=== PATIENT | female | born 1985 | race Caucasian/White ===

== ENCOUNTER 2016-07-29 10:22 | Emergency (ER) | payer OTHER ==
[~2016-07-29] VITALS: Ht 154.9 cm; Wt 60.0 kg
[~2016-07-29 10:22] MED LIST: ALPR.5 PO
[2016-07-29 10:24] VITALS: BP 119/77; PULSE 82; RESP 20; TEMP 97.5; O2SAT 100
--- NOTE | 2016-07-29 11:06 | PD ---
Physical Exam Date Seen by Provider: Jul 29, 2016 Time Seen by Provider: 11:02 Narrative Pt presents to the ED for evaluation of a skin rash on her hands. Pt states she was bitten by ants 2 weeks ago and thinks this is what started it. Pt states it is painful and feels irritated and her fingertips feel numb. VSS, pt appears well. Pt awaiting bed placement. Data Data Last Documented VS Vital Signs Date Time Temp Pulse Resp B/P Pulse Ox O2 Delivery O2 Flow Rate FiO2 07/29/16 10:24 97.5 82 20 119/77 100 Room Air MDM Supervised Visit with PLACIDO: Carol Bera Jul 29, 2016 11:06
[2016-07-29] MEDS ORDERED: LAMO25 PO (12:32)
[2016-07-29] MEDS ORDERED: BACT800T5 PO (12:41)
[2016-07-29] MEDS ORDERED: CEPH-460 PO (12:41)
--- NOTE | 2016-07-29 12:43 | PD ---
HPI Chief Complaint: Skin Problem Time Seen by Provider: 12:41 Travel History International Travel<30 days: No Contact w/Intl Traveler<30days: No Traveled to known affect area: No History of Present Illness HPI 31-year-old female with a history of IV drug use presents to the emergency department for evaluation of bilateral hand redness at injection sites. The patient states that she has a history of IV heroin abuse, last used this morning. States that she went to [facility] this morning to enroll herself in detox and she was told she had to come here to have her hands evaluated before they would accept her. Patient states that she's had redness and swelling to bilateral hands for the past 2-3 weeks. States that it has greatly improved over the past 2 weeks just with proper wound care. States that she had a fever 2 weeks ago but since has had no fever. States that she is feeling well overall and that the redness and swelling has almost resolved. Denies chest pain, shortness of breath, numbness or tingling, weakness, chills. No other complaints. Denies , last menstrual period 1 week ago. PFSH Past Medical History Anxiety: Yes ?: Not LMP: 07/28/16 Social History Alcohol Use: No Tobacco Use: Yes Substance Use: Yes Allergies-Medications (Allergen,Severity, Reaction): Coded Allergies: Penicillin (Verified Allergy, Unknown, 02/29/16) Reported Meds & Prescriptions Reported Meds & Active Scripts Active Keflex (Cephalexin) 500 Mg Cap 500 Mg PO Q8H 7 Days Bactrim DS (Sulfamethoxazole-Trimethoprim) 800-160 Mg Tab 1 Tab PO BID 10 Days Reported Lamictal (Lamotrigine) 25 Mg Tab 25 Mg PO DAILY Review of Systems Except as stated in HPI: all other systems reviewed are Neg Physical Exam Narrative GENERAL: Well-nourished and well-developed pleasant female patient in no acute distress who is nontoxic appearing. SKIN: Warm and dry. HEAD: Normocephalic and atraumatic. EYES: No injection, drainage, or hyphema noted. PERRLA. EOMI. ENT: No nasal drainage noted. Oropharynx is clear. NECK: Supple and the trachea is midline. CARDIOVASCULAR: Regular rate and rhythm. No murmur. RESPIRATORY: Breath sounds are equal bilaterally with no accessory muscle use, wheezing, rhonchi, or crackles. EXTREMITY: Bilateral dorsal aspects of hands with multiple small areas of erythema with healing injection sites. There is an area of erythema overlying the volar aspect of the right wrist that is warm to touch however patient has full range of motion in all joints and no evidence of septic joint. Full range of motion in all joints. No joint swelling/injury. Lumbrical and interossei function intact. Normal opposition of thumb. Distal extremity neurovascularly intact with intact two point discrimination. NEUROLOGICAL: Awake, alert, and oriented. Normal speech and gait. Cranial nerves are grossly intact. Data Data Last Documented VS Vital Signs Date Time Temp Pulse Resp B/P Pulse Ox O2 Delivery O2 Flow Rate FiO2 07/29/16 10:24 97.5 82 20 119/77 100 Room Air MDM Medical Decision Making Medical Screen Exam Complete: Yes Emergency Medical Condition: Yes Differential Diagnosis Cellulitis versus IV drug use versus healing wounds Narrative Course 31-year-old female presents to the emergency department for evaluation of bilateral hand redness secondary to IV drug use. Patient is afebrile, vital signs are stable. The patient is reporting that these have greatly improved over the past several weeks. They do appear to be healing but there are 2 areas on the hand and wrist that still appear to be cellulitic and therefore the patient will be placed on antibiotics. No signs or symptoms of sepsis or septic joint. Patient is stable for discharge. Diagnosis Primary Impression: Cellulitis of multiple sites of hand and fingers Additional Impression: IVDU (intravenous drug user) Referrals: Primary Care Physician Patient Instructions: Cellulitis (ED), General Instructions Additional Instructions: Take medications as prescribed with food and a full glass of water. Follow-up with your Primary Care Physician. Return to the ED for any acute worsening of symptoms. Med/Other Pt SpecificInfo: Prescription(s) given Scripts Cephalexin (Keflex)500 Mg Qly576 Mg PO Q8H 7 Days Ref 0 Prov:Ion Figueroa MD 07/29/16 Sulfamethoxazole-Trimethoprim (Bactrim DS)800-160 Mg Tab1 Tab PO BID 10 Days Ref 0 Prov:Ion Figueroa MD 07/29/16 Disposition: 01 DISCHARGE HOME Condition: Stable Angelique Persaud Jul 29, 2016 12:43
== END 2016-07-29 13:23 | disposition home or self-care (01) ==
LOC: NETRI 10:22
DX: L03.114 Cellulitis of left upper limb (principal); L03.113 Cellulitis of right upper limb; F11.10 Opioid abuse, uncomplicated; Z72.0 Tobacco use
CPT/HCPCS: 99283

== ENCOUNTER 2016-09-26 00:58 | Emergency (ER) | payer SELFPAY ==
[~2016-09-26] VITALS: Ht 165.1 cm; Wt 60.0 kg
[~2016-09-26 00:58] MED LIST changes: -ALPR.5 PO; +BACT800T5 PO; +CEPH-460 PO; +LAMO25 PO
[2016-09-26 01:00] VITALS: BP 111/75; PULSE 80; RESP 16; TEMP 98.7; O2SAT 100
[2016-09-26 02:42] VITALS: BP 110/69; PULSE 72; RESP 24; TEMP 98.1; O2SAT 100
[2016-09-26] MEDS ORDERED: TRAZ50TA12 PO (02:50)
[2016-09-26] MEDS ORDERED: antidepressant (02:50)
--- NOTE | 2016-09-26 03:11 | PD ---
HPI Chief Complaint: Syncope/Near-Syncope Time Seen by Provider: 02:44 Travel History International Travel<30 days: No Contact w/Intl Traveler<30days: No Traveled to known affect area: No History of Present Illness HPI The patient is a 31 year old female who presents to the [facility] emergency department with a history of right hand pain that began 2-3 days ago when she missed while injecting Dilaudid. She has been using IV drugs for 3 years. She has had dizziness. She denies fever. She also reports having shortness of breath intermittently since yesterday. She last used heroin a few hours ago. The patient reports over the last day having dysuria with urinary frequency, no urinary urgency. The patient denies any known recent fevers, cough, congestion, neck pain, chest pain, abdominal pain, vomiting, diarrhea, urinary symptoms, or neurologic symptoms. LMP September 20, 2016. [facility] Past Medical History Narrative Medical The patient's past medical history is significant for anxiety, insomnia, IV drug use. No h/o HIV or hepatitis C. She was last tested 1 month ago. Anxiety: Yes Diminished Hearing: No Insomnia: Yes Tetanus Vaccination: < 5 Years Influenza Vaccination: No ?: Not LMP: 09/22/16 Menopausal: No : 2 Para: 2 Past Surgical History Narrative Surgical The patient's past surgical history is significant for breast augmentation, c- section x1. Section: Yes Other Surgery: Yes (breast augmentation) Social History Alcohol Use: No Tobacco Use: Yes (vaps daily) Substance Use: Yes (Dilaudid/ heroin) Allergies-Medications (Allergen,Severity, Reaction): Coded Allergies: Penicillin (Verified Allergy, Unknown, 02/29/16) Reported Meds & Prescriptions Reported Meds & Active Scripts Active Cephalexin 500 Mg Cap 500 Mg PO Q6H 10 Days Bactrim DS (Sulfamethoxazole-Trimethoprim) 800-160 Mg Tab 1 Tab PO BID 10 Days Reported [antidepressant] Trazodone (Trazodone HCl) 50 Mg Tab 100 Mg PO HS Review of Systems Except as stated in HPI: all other systems reviewed are Neg General / Constitutional: No: Fever Eyes: No: Visual changes HENT: No: Headaches, Rhinorrhea, Congestion Cardiovascular: Positive: Dyspnea on exertion, No: Chest Pain or Discomfort Respiratory: Positive: Shortness of Breath, No: Cough Gastrointestinal: No: Nausea, Vomiting, Diarrhea, Abdominal Pain Genitourinary: No: Dysuria Musculoskeletal: Positive: Myalgias, Edema, Pain, No: Limited ROM Skin: Positive Other (redness of the right proximal hand), No Rash Neurologic: No: Weakness, Focal Abnormalities, Change in Mentation, Slurred Speech, Paresthesia Psychiatric: No: Depression Endocrine: No: Polydipsia Hematologic/Lymphatic: No: Easy Bruising Physical Exam Narrative General: The patient is a well-developed well-nourished female in no acute distress. Head and Neck exam: Head is normocephalic atraumatic. Eyes: EOMI, pupils are equal round and reactive to light. Nose: Midline septum with pink mucous membranes Mouth: Dentition unremarkable. Moist mucus membranes. Posterior oropharynx is not erythematous. No tonsillar hypertrophy. Uvula midline. Airway patent. Neck: No palpable lymphadenopathy. No nuchal rigidity. No thyromegaly. Cardiovascular: Regular rate and rhythm without murmurs, gallops, or rubs. No pulse deficit to the extremities on auscultation and palpation of her radial artery. Lungs: Clear to auscultation bilaterally. No wheezes, rhonchi, or rales. Abdomen: Soft, without tenderness to palpation in all 4 quadrants of the abdomen. No guarding, rebound, or rigidity. Normal bowel sounds are audible. No tenderness on palpation of McBurney's point. Extremities: No clubbing, cyanosis, or edema, except an area of interest, the right upper extremity. The patient is noted to have slight edema and erythema along the ulnar side of the proximal hand. There is no fluctuance. No pointing. The patient has full range of motion. 2+ pulses in all 4 extremities. Back: No spinous process tenderness to palpation. No costovertebral angle tenderness to palpation. Neurologic Exam: Cranial nerves 2-12 were intact on exam. Strength is 5/5 in all 4 extremities. No sensory deficits noted. Skin Exam: The patient has track flores noted in bilateral upper extremities. Data Data Last Documented VS Vital Signs Date Time Temp Pulse Resp B/P Pulse Ox O2 Delivery O2 Flow Rate FiO2 09/26/16 07:25 80 18 99/58 99 09/26/16 05:39 Room Air 09/26/16 02:42 98.1 Orders Electrocardiogram (09/26/16 03:11) Complete Blood Count With Diff (09/26/16 03:11) Comprehensive Metabolic Panel (09/26/16 03:11) B-Type Natriuretic Peptide (09/26/16 03:11) Blood Culture (09/26/16 03:11) Urinalysis - C+S If Indicated (09/26/16 03:11) Westergren Sedimentation Rate (09/26/16 03:11) D-Dimer (09/26/16 03:11) Chest, Single Ap (09/26/16 03:11) Iv Access Insert/Monitor (09/26/16 03:11) Ecg Monitoring (09/26/16 03:11) Oximetry (09/26/16 03:11) Ed Urine Pregnancytest Poc (09/26/16 03:11) Lactic Acid Sepsis Protocol (09/26/16 03:11) Clindamycin Inj (Cleocin Inj) (09/26/16 03:15) Sodium Chlor 0.9% 1000 Ml Inj (Ns 1000 M (09/26/16 03:15) Urine Culture (09/26/16 03:15) Sulfamet-Trimeth Ds 800-160 Mg (Bactrim (09/26/16 04:15) Ct Pulmonary Angiogram (09/26/16 04:54) Iohexol 350 Inj (Omnipaque 350 Inj) (09/26/16 05:53) Labs Laboratory Tests Test 09/26/16 09/26/16 03:15 04:00 White Blood Count 7.7 TH/MM3 Red Blood Count 4.36 MIL/MM3 Hemoglobin 10.8 GM/DL Hematocrit 34.5 % Mean Corpuscular Volume 79.2 FL Mean Corpuscular Hemoglobin 24.7 PG Mean Corpuscular Hemoglobin 31.2 % Concent Red Cell Distribution Width 19.0 % Platelet Count 272 TH/MM3 Mean Platelet Volume 7.6 FL Neutrophils (%) (Auto) 63.9 % Lymphocytes (%) (Auto) 23.7 % Monocytes (%) (Auto) 7.6 % Eosinophils (%) (Auto) 4.1 % Basophils (%) (Auto) 0.7 % Neutrophils # (Auto) 4.9 TH/MM3 Lymphocytes # (Auto) 1.8 TH/MM3 Monocytes # (Auto) 0.6 TH/MM3 Eosinophils # (Auto) 0.3 TH/MM3 Basophils # (Auto) 0.1 TH/MM3 CBC Comment DIFF FINAL Differential Comment Erythrocyte Sedimentation Rate 19 mm/hr D-Dimer Quantitative (PE/DVT) 0.57 MG/L FEU Urine Color YELLOW Urine Turbidity HAZY Urine pH 5.5 Urine Specific [place] 1.026 Urine Protein TRACE mg/dL Urine Glucose (UA) NEG mg/dL Urine Ketones TRACE mg/dL Urine Occult Blood NEG Urine Nitrite POS Urine Bilirubin NEG Urine Urobilinogen LESS THAN 2.0 MG/DL Urine Leukocyte Esterase LARGE Urine RBC 4 /hpf Urine WBC 59 /hpf Urine Squamous Epithelial <1 /hpf Cells Urine Bacteria MANY /hpf Urine Mucus FEW /lpf Microscopic Urinalysis Comment CULTURE INDICATED Sodium Level 140 MEQ/L Potassium Level 3.9 MEQ/L Chloride Level 102 MEQ/L Carbon Dioxide Level 27.4 MEQ/L Anion Gap 11 MEQ/L Blood Urea Nitrogen 16 MG/DL Creatinine 0.81 MG/DL Estimat Glomerular Filtration 83 ML/MIN Rate Random Glucose 102 MG/DL Lactic Acid Level 0.7 mmol/L Calcium Level 8.9 MG/DL Total Bilirubin 0.3 MG/DL Aspartate Amino Transf 89 U/L (AST/SGOT) Alanine Aminotransferase 173 U/L (ALT/SGPT) Alkaline Phosphatase 334 U/L Total Protein 7.9 GM/DL Albumin 3.9 GM/DL B-Type Natriuretic Peptide 6 PG/ML MDM Medical Decision Making Medical Screen Exam Complete: Yes Emergency Medical Condition: Yes Medical Record Reviewed: Yes Interpretation(s) Last Impressions CT Angiography 09/26/16 0454 Signed Impressions: Service Date/Time: Monday, September 26, 2016 05:47 - CONCLUSION: No evidence of pulmonary embolism. Mild axillary rissa prominence Festus Castrejon MD Chest X-Ray 09/26/16 0311 Signed Impressions: Service Date/Time: Monday, September 26, 2016 03:43 - CONCLUSION: No acute disease. Festus Castrejon MD Differential Diagnosis Cellulitis, versus sepsis, versus pneumonia, versus pulmonary embolism, versus septic embolization, versus endocarditis Narrative Course During the course of the patients emergency department visit, the patients history, examination, and differential diagnosis were reviewed with the patient. The patient had IV access obtained and blood work sent for analysis. The patient was placed on a awake overnight monitor with oximetry and blood pressure monitoring. An EKG was done on arrival. The patient's EKG shows a sinus bradycardia with sinus arrhythmia, heart rate 57, QRS duration 85 ms, QTC 420 ms , no acute ST segment elevation or depression, T waves inverted in V1. The patient was initially provided normal saline 1 L IV fluid bolus, clindamycin 900 mg IV. After a urinary tract infection was identified the patient was given Bactrim DS one by mouth times one. The patients laboratory studies were reviewed and remarkable for a white count of 7.7, hemoglobin 10.8, platelets 272 with 4.1 eosinophils, sedimentation rate is 19, CMP is remarkable for a GFR of 83, AST 89, ALT 173, alkaline phosphatase 334, lactic acid 0.7, BNP is 6, d-dimer is elevated at 0.57, CTA to rule out PE was ordered. Urinalysis shows trace ketones, positive nitrites, large leukocyte esterase, 4 rbc's, wbc's 59, many bacteria Radiology studies were reviewed and remarkable for a chest x-ray that shows no acute abdomen on a. CTA to rule out PE was negative for pulmonary embolism, mild axillary lymphadenopathy is noted. The patient was instructed regarding the elevated liver enzymes which could be related hepatitis given her history of IV drug use. She is instructed to follow -up with a primary care physician regarding this. She is instructed to avoid IV drug use. The patient will be discharged home with a prescription for Bactrim DS, and Keflex. The patient is resting comfortably and feels better, is alert and in no distress. The patients results and examination findings were discussed with the patient. The repeat examination is unremarkable and benign. The history, exam, diagnostic testing, and current condition do not suggest any significant pathology to warrant further testing, continued ED treatment, admission, or surgical evaluation at this point. The vital signs have been stable. The patient does not have uncontrollable pain, intractable vomiting, or other significant symptoms. The patient's condition is stable and appropriate for discharge. The patient will pursue further outpatient evaluation with a primary care physician or other designated or consulting physician as indicated in the discharge instructions. The patient expressed understanding and was agreeable with this plan. Diagnosis Primary Impression: Cellulitis of right hand Additional Impressions: Urinary tract infection Qualified Code: N30.00 - Acute cystitis without hematuria Elevated liver enzymes Referrals: Primary Care Physician Patient Instructions: Cellulitis (ED), General Instructions, Urinary Tract Infection in Women (ED) Additional Instructions: Follow-up with your primary care physician regarding elevated liver enzymes. Med/Other Pt SpecificInfo: Prescription(s) given Scripts Cephalexin 500 Mg Pde539 Mg PO Q6H 10 Days Ref 0 Prov:Beverly Jarrett MD 09/26/16 Sulfamethoxazole-Trimethoprim (Bactrim DS)800-160 Mg Tab1 Tab PO BID 10 Days Ref 0 Prov:Beverly Jarrett MD 09/26/16 Disposition: 01 DISCHARGE HOME Condition: Stable Beverly Jarrett MD September 26, 2016 03:11
[2016-09-26] MEDS ORDERED: SODIUM CHLOR 0.9% 1000 ML INJ 1,000 ML IV ONE (03:15)
[2016-09-26] MEDS ORDERED: CLINDAMYCIN INJ 900 MG in SODIUM CHLORIDE 0.9% INJ 100 ML IV ONE (03:15)
[2016-09-26 03:32] VITALS: O2SAT 100
[2016-09-26 03:45] LABS: AUTOMATED NEUTROPHIL # 4.9 TH/MM3 (1.8-7.7); BASOPHIL # 0.1 TH/MM3 (0-0.2); BASOPHIL % 0.7 % (0.0-2.0); EOSINOPHIL # 0.3 TH/MM3 (0-0.4); EOSINOPHIL % 4.1 % (0.0-4.0); HEMATOCRIT 34.5 % (35.0-46.0); HEMO FLAGS DIFF FINAL; LYMPH % 23.7 % (9.0-44.0); LYMPHOCYTE # 1.8 TH/MM3 (1.0-4.8); MEAN CELL VOLUME 79.2 FL (80.0-100.0); MEAN CORPUSCULAR HEMOGLOBIN 24.7 PG (27.0-34.0); MEAN CORPUSCULAR HGB CONC 31.2 % (32.0-36.0); MONO % 7.6 % (0.0-8.0); NEUT % 63.9 % (16.0-70.0); PLATELET COUNT 272 TH/MM3 (150-450); RED BLOOD COUNT 4.36 MIL/MM3 (4.00-5.30); WHITE BLOOD COUNT 7.7 TH/MM3 (4.0-11.0)
[2016-09-26 03:51] LABS: BACTERIA, URINE MANY /hpf; BLOOD, URINE NEG (NEG); COMMENT (UR) CULTURE INDICATED; CULTURE IF INDICATED CULTURE INDICATED; GLUCOSE,URINE NEG (NEG); KETONE, URINE TRACE mg/dL (NEG); MUCUS URINE FEW /lpf (OCC); NITRITE,URINE POS (NEG); PH, URINE 5.5 (5.0-8.5); SQUAMOUS EPITHELIAL CELL URINE <1 /hpf (0-5); URINE COLOR YELLOW (YELLW/STRAW)
[2016-09-26 04:04] LABS: ALKALINE PHOSPHATASE 334 U/L (45-117); TOTAL BILIRUBIN ADULT 0.3 MG/DL (0.2-1.0)
[2016-09-26 04:10] LABS: ALT (GPT) 173 U/L (10-53); ANION GAP 11 MEQ/L (5-15); AST (GOT) 89 U/L (15-37); BICARBONATE 27.4 MEQ/L (21.0-32.0); BLOOD UREA NITROGEN 16 MG/DL (7-18); CHLORIDE 102 MEQ/L (98-107); GLOMERULAR FILTRATION RATE 83 ML/MIN (>89); POTASSIUM 3.9 MEQ/L (3.5-5.1); SODIUM (NA) 140 MEQ/L (136-145)
[2016-09-26] MEDS ORDERED: SULFAMETHOXAZOLE-TRIMETHOPRIM DS 800-160 MG TAB PO ONE (04:15)
--- NOTE | 2016-09-26 04:56 | RADRPT ---
EXAM DATE/TIME: 09/26/2016 03:43 [facility] COMPARISON: No previous studies available for comparison. INDICATIONS : Short of breath. MEDICAL HISTORY : None. SURGICAL HISTORY : None. ENCOUNTER: Initial ACUITY: 1 day PAIN SCORE: 6/10 LOCATION: Bilateral chest FINDINGS: A single view of the chest demonstrates the lungs to be symmetrically aerated without evidence of mas s, infiltrate or effusion. The cardiomediastinal contours are unremarkable. Osseous structures are intact. CONCLUSION: No acute disease. Festus Castrejon MD on September 26, 2016 at 4:54 Board Certified Radiologist. This report was verified electronically.
[2016-09-26 05:39] VITALS: BP 115/70; PULSE 78; RESP 20; O2SAT 98
[2016-09-26] MEDS ORDERED: IOHEXOL 350 MG/ML 10 ML VIAL (for RAD DIAG) IV ONE (05:53)
--- NOTE | 2016-09-26 06:30 | RADRPT ---
EXAM DATE/TIME: 09/26/2016 05:47 [facility] COMPARISON: No previous studies available for comparison. INDICATIONS : Dyspnea; rule out pulmonary embolus. IV CONTRAST: 72 cc Omnipaque 350 (iohexol) IV RADIATION DOSE: 23.14 CTDIvol (mGy) MEDICAL HISTORY : substance abuse SURGICAL HISTORY : section. ENCOUNTER: Initial ACUITY: 1 day PAIN SCALE: 3/10 LOCATION: chest TECHNIQUE: Volumetric scanning of the chest was performed using a pulmonary embolism protocol MIP images were re constructed. Using automated exposure control and adjustment of the mA and/or kV according to patien t size, radiation dose was kept as low as reasonably achievable to obtain optimal diagnostic quality images. FINDINGS: PULMONARY ARTERIES: No filling defects are seen in the pulmonary arteries through the segmental level. LUNGS: Mild dependent posterior lung atelectasis bilaterally. PLEURAE: There is no pleural thickening or pleural effusion. MEDIASTINUM: There is good visualization of the great vessels of the middle mediastinum. No evidence of mediastin al or hilar adenopathy/mass. MUSCULOSKELETAL: Within normal limits for patient age. MISCELLANEOUS: Mild prominence of bilateral axillary lymph nodes. The visualized upper abdominal organs demonstrate no acute abnormality. CONCLUSION: No evidence of pulmonary embolism. Mild axillary rissa prominence Festus Castrejon MD on September 26, 2016 at 6:24 Board Certified Radiologist. This report was verified electronically.
[2016-09-26] MEDS ORDERED: BACT800T5 PO (06:57)
[2016-09-26] MEDS ORDERED: CEPH500C PO (06:57)
[2016-09-26 07:25] VITALS: BP 99/58
--- NOTE | 2016-09-26 08:12 | EKG ---
Date Performed: 09/26/2016 Time Performed: 04:03:50 PTAGE: 31 years EKG: SINUS BRADYCARDIA WITH SINUS ARRHYTHMIA BORDERLINE ECG NO PREVIOUS TRACING DOCTOR: Morgan Chan Interpretating Date/Time 09/26/2016 08:12:24
== END 2016-09-26 07:26 | disposition home or self-care (01) ==
LOC: NEPE 00:58
DX: L03.113 Cellulitis of right upper limb (principal); N30.00 Acute cystitis without hematuria; B96.20 Unspecified Escherichia coli [E. coli] as the cause of diseases classified elsewhere; R00.1 Bradycardia, unspecified; R74.8 Abnormal levels of other serum enzymes; R06.02 Shortness of breath; Z72.0 Tobacco use
CPT/HCPCS: 71010; 71275; 80053; 81001; 83605; 83880; 84703; 85025; 85379; 85652; 87040; 87077; 87086; 87186; 93005; 96365; 96366; 99285; J7030; Q9967

== ENCOUNTER 2016-10-04 10:50 | Emergency (ER) | payer SELFPAY ==
[~2016-10-04] VITALS: Ht 152.4 cm; Wt 65.0 kg
[~2016-10-04 10:50] MED LIST changes: -CEPH-460 PO; +CEPH500C PO; -LAMO25 PO; +TRAZ50TA12 PO; +antidepressant
[2016-10-04 10:52] VITALS: BP 117/63; PULSE 63; RESP 15; TEMP 98.1; O2SAT 99
--- NOTE | 2016-10-04 12:10 | RADRPT ---
EXAM DATE/TIME: 10/04/2016 11:34 [facility] COMPARISON: No previous studies available for comparison. INDICATIONS : Pelvic pain following IUD removal attempt. MEDICAL HISTORY : Pelvic pain. SURGICAL HISTORY : IUD placement. ENCOUNTER: Initial ACUITY: 3 months PAIN SCORE: 4/10 LOCATION: Bilateral pelvis MEASUREMENTS: UTERUS: 8.3 x 4.1 x 3.7 cm ENDOMETRIAL STRIPE: 14 mm RIGHT OVARY: 3.6 x 1.4 x 2.2 cm LEFT OVARY: 3.9 x 2.0 x 2.3 cm FINDINGS: UTERUS: The exam demonstrates an IUD within the uterine cavity. The endometrium is unremarkable in appearance . RIGHT OVARY: The exam demonstrates 1.1 x 1.0 x 1.0 cm cyst in the mid aspect of the right ovary. There are small f ollicular cysts as well. LEFT OVARY: The exam demonstrates a 1.8 x 1.0 x 1.0 cm anechoic cyst in the mid aspect of the left ovary. There a re small follicular cysts as well. MISCELLANEOUS: There is a small amount of free fluid in the uterine cul-de-sac. CONCLUSION: 1. There is an IUD in place. 2. Small bilateral ovarian cysts. Abdi Patel MD on October 04, 2016 at 12:05 Board Certified Radiologist. This report was verified electronically.
--- NOTE | 2016-10-04 12:56 | PD ---
HPI Chief Complaint: Claim Rep Problem/Complaint Time Seen by Provider: 10:58 Travel History International Travel<30 days: No Contact w/Intl Traveler<30days: No Traveled to known affect area: No History of Present Illness HPI Is a 31-year-old woman who presents to the emergency Department sent in from the health department because her IUD strings reportedly broke when they went to remove it. She has a ParaGard that was placed about 6 or 7 years ago. She' s been having pain cramping and bleeding and was desiring to get so she went to have her removed. She reports that when he went to remove the IUD the strings broke and he did not remove the IUD. She otherwise has been her usual state of health. Last initial period finished about 2 days ago. History Past Medical History Medical History: Denies Significant Hx LMP: 09/29/16 Menopausal: No : 2 Para: 2 Social History Alcohol Use: No Tobacco Use: Yes (vaps daily) Allergies-Medications (Allergen,Severity, Reaction): Coded Allergies: Penicillin (Verified Allergy, Unknown, 02/29/16) Reported Meds & Prescriptions Reported Meds & Active Scripts Active Cephalexin 500 Mg Cap 500 Mg PO Q6H 10 Days Bactrim DS (Sulfamethoxazole-Trimethoprim) 800-160 Mg Tab 1 Tab PO BID 10 Days Reported [antidepressant] Trazodone (Trazodone HCl) 50 Mg Tab 100 Mg PO HS Review of Systems Except as stated in HPI: all other systems reviewed are Neg Physical Exam Narrative GENERAL: Well-appearing 31-year-old woman, no acute distress. SKIN: Focused skin assessment warm/dry. NECK: Trachea midline. No JVD. CARDIOVASCULAR: Regular rate and rhythm. No murmur appreciated. RESPIRATORY: No accessory muscle use. Clear to auscultation. Breath sounds equal bilaterally. GASTROINTESTINAL: Abdomen soft, non-tender, nondistended. Hepatic and splenic margins not palpable. MUSCULOSKELETAL: No obvious deformities. No edema. PELVIC: Normal external female genitalia. Cervix is normal in appearance. No IUD strings were identified. Data Data Last Documented VS Vital Signs Date Time Temp Pulse Resp B/P Pulse Ox O2 Delivery O2 Flow Rate FiO2 10/04/16 10:52 98.1 63 15 117/63 99 Orders Ed Urine Pregnancytest Poc (10/04/16 11:02) Us Pelvis Comp W Transvaginal (10/04/16 ) Mandatory Outpatient Referral (10/04/16 12:55) MDM Medical Decision Making Medical Screen Exam Complete: Yes Emergency Medical Condition: Yes Interpretation(s) Pelvic ultrasound shows IUD is in place Differential Diagnosis IUD, perforation, migration, other Narrative Course Medical decision making 31-year-old woman who presents emergency department for evaluation. Her IUD strings broken a turn or move it. IUD still appears to be in place by ultrasound. I spoke with Dr. Sevilla, OB hospitalist on-call. States patient in follow-up with [facility] as an outpatient, they may be other use an IUD hope to remove it, or may need a D&C. Diagnosis Primary Impression: IUD (intrauterine device) in place Referrals: Mita Lock MD 1 week Patient Instructions: General Instructions Additional Instructions: Follow-up with Dr. Lock, the on-call tape sewer, the first available appointment. Return to the emergency department for any worsening pain, cramping, or any other new or worsening symptoms. Med/Other Pt SpecificInfo: No Change to Meds Disposition: 01 DISCHARGE HOME Condition: Dashawn Horton MD Oct 04, 2016 12:56
== END 2016-10-04 13:14 | disposition home or self-care (01) ==
LOC: NEPD 10:50
DX: Z97.5 Presence of (intrauterine) contraceptive device (principal); T83.89XA Other specified complication of genitourinary prosthetic devices, implants and grafts, initial encounter
CPT/HCPCS: 76830; 76856; 84703

== ENCOUNTER 2016-11-30 16:16 | Emergency (ER) | payer SELFPAY ==
[2016-11-30 16:18] VITALS: BP 113/71; PULSE 76; RESP 20; TEMP 98.1; O2SAT 99
--- NOTE | 2016-11-30 16:49 | PD ---
Physical Exam Time Seen by Provider: 16:47 Narrative 31yo F c/o L ankle pain after stepping on a branch injuring her ankle today. Patient seen in triage. VS reviewed. Patient awaiting bed placement. Data Data Last Documented VS Vital Signs Date Time Temp Pulse Resp B/P Pulse Ox O2 Delivery O2 Flow Rate FiO2 11/30/16 16:18 98.1 76 20 113/71 99 Room Air [facility] Supervised Visit with PLACIDO: Angelique Cohn Nov 30, 2016 16:49
--- NOTE | 2016-11-30 17:53 | RADRPT ---
EXAM DATE/TIME: 11/30/2016 17:41 [facility] COMPARISON: No previous studies available for comparison. INDICATIONS : Patient rolled her ankle today when she tripped over a tree. MEDICAL HISTORY : None. SURGICAL HISTORY : IUD placement, Breast augmentation. ENCOUNTER: Initial ACUITY: 1 day PAIN SCORE: 7/10 LOCATION: Left Ankle. FINDINGS: Three view exam was performed of the left ankle. The bony structures are in normal alignment. No ev idence of fracture, dislocation, or soft tissue swelling. The ankle mortise is intact. No radiopaqu e foreign bodies are seen. Bony mineralization is normal. CONCLUSION: Unremarkable examination of the left ankle. Isai Hatch Jr., MD on November 30, 2016 at 17:50 Board Certified Radiologist. This report was verified electronically.
[2016-11-30] MEDS ORDERED: DICL75TA PO (20:41)
[2016-11-30] MEDS ORDERED: IBUPROFEN 800 MG TAB PO ONE (20:45)
--- NOTE | 2016-11-30 20:45 | PD ---
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 She states that she could not hear any pop or crack. She has had difficulty with weightbearing. Pain is moderate. She denies any numbness, tingling or weakness. No injury to her head, neck or back. No alleviating factors. PFSH Past Medical History Anxiety: Yes Diminished Hearing: No Insomnia: Yes Tetanus Vaccination: < 5 Years ?: Not LMP: 11/13/16 Menopausal: No : 2 Para: 2 Past Surgical History Section: Yes Other Surgery: Yes (breast augmentation) Social History Alcohol Use: No Tobacco Use: Yes (vaps daily) Substance Use: Yes (Dilaudid/ heroin) Allergies-Medications (Allergen,Severity, Reaction): Coded Allergies: Penicillin (Verified Allergy, Unknown, 02/29/16) Reported Meds & Prescriptions Reported Meds & Active Scripts Active Diclofenac Sodium DR (Diclofenac Sodium) 75 Mg Tabdr 75 Mg PO BID Cephalexin 500 Mg Cap 500 Mg PO Q6H 10 Days Bactrim DS (Sulfamethoxazole-Trimethoprim) 800-160 Mg Tab 1 Tab PO BID 10 Days Reported [antidepressant] Trazodone (Trazodone HCl) 50 Mg Tab 100 Mg PO HS Physical Exam Narrative GENERAL: This is a well-nourished, well-developed patient, in no apparent distress. SKIN: No rashes, ecchymoses or lesions. Warm and dry. HEAD: Atraumatic. Normocephalic. EYES: PERRL, EOMI, no discharge or injection. No scleral icterus. EARS: Clear NOSE: Nasal turbinates appear normal. THROAT: Mucosa pink and moist. Airway patent. NECK: Trachea midline. supple, moves head freely. LUNGS: Clear to auscultation. CV: Regular in rhythm. ABDOMEN: Soft nontender. EXT: No clubbing cyanosis or edema. Examination of the left lower extremity reveals tenderness over the soft tissue components of the ankle. No pain on the medial or lateral malleolus. Minimal swelling. The skin is intact. She has intact sensation with good distal pulses. Data Data Last Documented VS Vital Signs Date Time Temp Pulse Resp B/P Pulse Ox O2 Delivery O2 Flow Rate FiO2 11/30/16 20:40 16 11/30/16 16:18 98.1 76 113/71 99 Room Air Orders Ankle, Complete ([id number]) (11/30/16 16:49) Ice/Cold Pack (11/30/16 20:37) Splint Or Brace Apply/Monitor (11/30/16 20:37) Crutches (11/30/16 20:37) Ibuprofen (Motrin) (11/30/16 20:45) MDM Medical Decision Making Medical Screen Exam Complete: Yes Emergency Medical Condition: Yes Medical Record Reviewed: Yes Interpretation(s) Last 24 hours Impressions Ankle X-Ray 11/30/16 1649 Signed Impressions: Service Date/Time: Monday, November 30, 2016 17:41 - CONCLUSION: Unremarkable examination of the left ankle. Isai Hatch Jr., MD Differential Diagnosis MDM: High Differential diagnoses: Fracture, sprain, strain, dislocation, contusion, neurovascular injury Narrative Course Patient's given Motrin 800 mg by mouth. X-ray is negative. Pierre wrap and crutches. This is left ankle sprain Diagnosis Primary Impression: Left ankle sprain Qualified Code: S93.432A - Sprain of tibiofibular ligament of left ankle, initial encounter Patient Instructions: General Instructions Additional Instructions: Rest. Elevation. Ice packs for the next 3 days. Pierre wrap and crutches. No weight-bearing and then progress to weight-bearing as tolerated. Medications as directed Follow-up with an orthopedist or your doctor in one week. Return to the ER if any problems Med/Other Pt SpecificInfo: Prescription(s) given Scripts Diclofenac Sodium DR 75 Mg Tabdr75 Mg PO BID #20 TAB Prov:Joseph Hdz MD 11/30/16 Disposition: 01 DISCHARGE HOME Condition: Stable Brandon Fu Nov 30, 2016 20:45
== END 2016-11-30 20:59 | disposition home or self-care (01) ==
LOC: NEPK 16:16
DX: S93.432A Sprain of tibiofibular ligament of left ankle, initial encounter (principal); X58.XXXA Exposure to other specified factors, initial encounter
CPT/HCPCS: 73610; 99283; E0113

== ENCOUNTER 2016-12-19 17:48 | Emergency (ER) | payer SELFPAY ==
[~2016-12-19] VITALS: Ht 152.4 cm; Wt 58.0 kg
[~2016-12-19 17:48] MED LIST changes: +DICL75TA PO
[2016-12-19 17:49] VITALS: BP 120/75; PULSE 96; RESP 20; TEMP 99.9; O2SAT 96
--- NOTE | 2016-12-19 19:43 | PD ---
Physical Exam Date Seen by Provider: Dec 19, 2016 Time Seen by Provider: 19:39 Narrative 31 y/o female here with c/o left flank pain for the past 3-4 days. Patient reports blood in stool today. Denies fever or chills. Pain 12/08. Patient has generalized body aches as well as flank. LMP 12-08-2016. No Nausea/vomiting/ Diarrhea/or vaginal discharge. Urine ordered. Vital Signs reviewed. Patient is Stable and awaiting Bed Placement. Data Data Last Documented VS Vital Signs Date Time Temp Pulse Resp B/P (MAP) Pulse Ox O2 Delivery O2 Flow Rate FiO2 12/19/16 17:49 99.9 96 20 120/75 (90) 96 Room Air [facility] Medical Record Reviewed: Yes Supervised Visit with PLACIDO: Yes Condition: Stable Yordan Whatley Dec 19, 2016 19:43
--- NOTE | 2016-12-19 19:46 | PD ---
HPI Chief Complaint: Flank/Kidney Pain Time Seen by Provider: 19:45 Travel History International Travel<30 days: No Contact w/Intl Traveler<30days: No Traveled to known affect area: No History of Present Illness HPI 31-year-old female with history of opiate dependency and IV drug abuse presents to the emergency department for evaluation of left flank pain. Patient states she has history of kidney infections and believes this is what she has. Pain is constant, been ongoing for the last 3-4 days with associated nausea. No vomiting. Unknown fever but has been chilled. No chest tightness. No difficulty breathing. Patient states that her urine is darker yellow but she drinks a lot of water. Denies any vaginal discharge or bleeding. She has no other symptoms to report at this time. PFSH Past Medical History Anxiety: Yes Diminished Hearing: No Insomnia: Yes ?: Unknown LMP: 12/08/16 Menopausal: No : 2 Para: 2 Past Surgical History Section: Yes Other Surgery: Yes (breast augmentation) Social History Alcohol Use: No Tobacco Use: Yes (vaps daily) Substance Use: Yes (Dilaudid/ heroin) Allergies-Medications (Allergen,Severity, Reaction): Coded Allergies: penicillin G (Unverified Allergy, Unknown, 12/19/16) Reported Meds & Prescriptions Reported Meds & Active Scripts Active Bactrim DS (Sulfamethoxazole-Trimethoprim) 800-160 Mg Tab 1 Tab PO BID Bactrim DS (Sulfamethoxazole-Trimethoprim) 800-160 Mg Tab 1 Tab PO BID 10 Days Review of Systems Except as stated in HPI: all other systems reviewed are Neg Physical Exam Narrative GENERAL: Well-nourished female patient, sitting up in bed, eating cheesy popcorn , in no acute distress SKIN: Focused skin assessment warm/dry. There are multiple track flores on the bilateral upper extremities. On the left posterior lateral distal forearm there is a track bertin with an area of induration around it. There is no fluctuance. The area is hard. HEAD: Atraumatic. Normocephalic. EYES: Pupils equal and round. No scleral icterus. No injection or drainage. ENT: No nasal bleeding or discharge. Mucous membranes pink and moist. NECK: Trachea midline. No JVD. CARDIOVASCULAR: Tachycardic rate and rhythm. No murmur appreciated. RESPIRATORY: No accessory muscle use. Clear to auscultation. Breath sounds equal bilaterally. GASTROINTESTINAL: Abdomen soft, non-tender, nondistended. Hepatic and splenic margins not palpable. Left CVA tenderness. MUSCULOSKELETAL: No obvious deformities. No clubbing. No cyanosis. No edema. NEUROLOGICAL: Awake and alert. No obvious cranial nerve deficits. Motor grossly within normal limits. Normal speech. Data Data Last Documented VS Vital Signs Date Time Temp Pulse Resp B/P (MAP) Pulse Ox O2 Delivery O2 Flow Rate FiO2 12/19/16 17:49 99.9 96 20 120/75 (90) 96 Room Air Orders Orders Complete Blood Count With Diff (12/19/16 19:49) Basic Metabolic Panel (Bmp) (12/19/16 19:49) Urinalysis - C+S If Indicated (12/19/16 19:49) Ed Urine Pregnancytest Poc (12/19/16 19:49) Ketorolac Inj (Toradol Inj) (12/19/16 20:00) Sodium Chlor 0.9% 1000 Ml Inj (Ns 1000 M (12/19/16 20:00) Ondansetron Inj (Zofran Inj) (12/19/16 20:00) Coag Profile (12/19/16 19:49) Ct Abd/Pel W/O Iv Contrast (12/19/16 ) Ketorolac Inj (Toradol Inj) (12/19/16 21:15) Ondansetron Odt (Zofran Odt) (12/19/16 21:15) Sodium Chlor 0.9% 1000 Ml Inj (Ns 1000 M (12/19/16 22:00) Ketorolac Inj (Toradol Inj) (12/19/16 22:00) Labs Laboratory Tests Test 12/19/16 20:05 12/19/16 21:45 Urine Color YELLOW Urine Turbidity HAZY Urine pH 5.5 Urine Specific [place] 1.030 Urine Protein TRACE mg/dL Urine Glucose (UA) NEG mg/dL Urine Ketones NEG mg/dL Urine Occult Blood NEG Urine Nitrite NEG Urine Bilirubin NEG Urine Urobilinogen 4.0 MG/DL Urine Leukocyte Esterase SMALL Urine RBC 1 /hpf Urine WBC 5 /hpf Urine Squamous Epithelial Cells 65 /hpf Urine Amorphous Sediment RARE Urine Mucus MANY /lpf Microscopic Urinalysis Comment CULT NOT INDICATED White Blood Count 7.6 TH/MM3 Red Blood Count 4.77 MIL/MM3 Hemoglobin 12.7 GM/DL Hematocrit 40.1 % Mean Corpuscular Volume 84.0 FL Mean Corpuscular Hemoglobin 26.6 PG Mean Corpuscular Hemoglobin Concent 31.7 % Red Cell Distribution Width 17.6 % Platelet Count 349 TH/MM3 Mean Platelet Volume 7.9 FL Neutrophils (%) (Auto) 64.6 % Lymphocytes (%) (Auto) 24.6 % Monocytes (%) (Auto) 7.5 % Eosinophils (%) (Auto) 2.8 % Basophils (%) (Auto) 0.5 % Neutrophils # (Auto) 4.9 TH/MM3 Lymphocytes # (Auto) 1.9 TH/MM3 Monocytes # (Auto) 0.6 TH/MM3 Eosinophils # (Auto) 0.2 TH/MM3 Basophils # (Auto) 0.0 TH/MM3 CBC Comment DIFF FINAL Differential Comment Prothrombin Time 10.8 SEC Prothromb Time International Ratio 1.0 RATIO Activated Partial Thromboplast Time 28.7 SEC Blood Urea Nitrogen 9 MG/DL Creatinine 0.81 MG/DL Random Glucose 84 MG/DL Calcium Level 8.6 MG/DL Sodium Level 135 MEQ/L Potassium Level 3.9 MEQ/L Chloride Level 99 MEQ/L Carbon Dioxide Level 28.4 MEQ/L Anion Gap 8 MEQ/L Estimat Glomerular Filtration Rate 83 ML/MIN MDM Medical Decision Making Medical Screen Exam Complete: Yes Emergency Medical Condition: Yes Medical Record Reviewed: Yes Differential Diagnosis UTI versus renal calculi versus STD versus colitis Narrative Course 31-year-old female presents to emergency department for evaluation of left flank pain. Patient appears without distress. She is sitting up eating cheesy popcorn during her entire stay here at the hospital. CT imaging does show a 1.6 mm nonobstructing stone in the left. CBC and BMP are without acute concern. Urinalysis is hazy with small leukocyte esterase, many mucus. Cultures not indicated. I discussed the patient of my attending physician. She 'll be discharged home at this time. Diagnosis Primary Impression: Renal calculus, left Additional Impressions: IVDU (intravenous drug user) Cellulitis of left forearm Referrals: Primary Care Physician Urologist Patient Instructions: General Instructions, Kidney Stones (ED) Additional Instructions: Maintain oral hydration It is recommended that you stop using IV drugs Follow-up the primary care provider Tylenol or ibuprofen as directed on the package as needed for pain Return immediately with any acute worsening symptoms Med/Other Pt SpecificInfo: Prescription(s) given Scripts Sulfamethoxazole-Trimethoprim (Bactrim DS) 800-160 Mg Tab 1 TAB PO BID for Infection, #20 TAB 0 Refills Prov: Christina Ríos 12/19/16 Disposition: 01 DISCHARGE HOME Condition: Stable Christina Ríos Dec 19, 2016 19:46
[2016-12-19] MEDS ORDERED: KETOROLAC TROMETHAMINE 30 MG/ML (IVP) VIAL IV PUSH ONE ×2 (20:00→22:00)
[2016-12-19] MEDS ORDERED: ONDANSETRON HCL 4 MG/2 ML VIAL IV PUSH ONE (20:00)
[2016-12-19] MEDS ORDERED: SODIUM CHLOR 0.9% 1000 ML INJ 1,000 ML IV ONE ×2 (20:00→22:00)
[2016-12-19] MEDS ORDERED: KETOROLAC TROMETHAMINE 60 MG/2 ML (IM) VIAL IM ONE (21:15)
[2016-12-19] MEDS ORDERED: ONDANSETRON ODT 4 MG TAB PO ONE (21:15)
--- NOTE | 2016-12-19 21:52 | RADRPT ---
EXAM DATE/TIME: 12/19/2016 21:18 [facility] COMPARISON: No previous studies available for comparison. INDICATIONS : Left flank pain X 4 days. ORAL CONTRAST: No oral contrast ingested. RADIATION DOSE: 13.24 CTDIvol (mGy) MEDICAL HISTORY : None SURGICAL HISTORY : Carotid endarterectomy. ENCOUNTER: Initial ACUITY: 4 - 6 days PAIN SCALE: 6/10 LOCATION: Left flank TECHNIQUE: Volumetric scanning of the abdomen and pelvis was performed. Using automated exposure control and ad justment of the mA and/or kV according to patient size, radiation dose was kept as low as reasonably achievable to obtain optimal diagnostic quality images. DICOM format image data is available electro nically for review and comparison. FINDINGS: LOWER LUNGS: The visualized lower lungs are clear. LIVER: Homogeneous density without lesion. There is no dilation of the biliary tree. No calcified gallston es. SPLEEN: Normal size without lesion. PANCREAS: Within normal limits. KIDNEYS: Normal in size and shape. A 1.6 mm calculus is identified in the midpole of the left kidney. There ar e no calculi seen along the course of the ureters. There is no evidence of hydronephrosis or hydroure ter. Multiple calcifications are identified within the left side of the pelvis which have the appeara nce of phleboliths. ADRENAL GLANDS: Within normal limits. VASCULAR: There is no aortic aneurysm. BOWEL/MESENTERY: The stomach, small bowel, and colon demonstrate no acute abnormality. There is no free intraperitone al air or fluid. ABDOMINAL WALL: Within normal limits. RETROPERITONEUM: There is no lymphadenopathy. BLADDER: No wall thickening or mass. REPRODUCTIVE: Within normal limits. INGUINAL: There is no lymphadenopathy or hernia. MUSCULOSKELETAL: Within normal limits for patient age. CONCLUSION: 1. 1.6 mm left renal calculus without evidence of hydronephrosis or hydroureter. 2. Multiple left-sided pelvic calcifications which have the appearance of phleboliths. 3. No evidence of acute process. Jaxon Harris MD on December 19, 2016 at 21:47 Board Certified Radiologist. This report was verified electronically.
[2016-12-19 22:43] LABS: AUTOMATED NEUTROPHIL # 4.9 TH/MM3 (1.8-7.7); BASOPHIL % 0.5 % (0.0-2.0); EOSINOPHIL # 0.2 TH/MM3 (0-0.4); EOSINOPHIL % 2.8 % (0.0-4.0); HEMATOCRIT 40.1 % (35.0-46.0); HEMO FLAGS DIFF FINAL; LYMPH % 24.6 % (9.0-44.0); LYMPHOCYTE # 1.9 TH/MM3 (1.0-4.8); MEAN CORPUSCULAR HEMOGLOBIN 26.6 PG (27.0-34.0); MEAN CORPUSCULAR HGB CONC 31.7 % (32.0-36.0); MONO % 7.5 % (0.0-8.0); NEUT % 64.6 % (16.0-70.0); PLATELET COUNT 349 TH/MM3 (150-450); RED BLOOD COUNT 4.77 MIL/MM3 (4.00-5.30); RED CELL DISTRIBUTION WIDTH 17.6 % (11.6-17.2); WHITE BLOOD COUNT 7.6 TH/MM3 (4.0-11.0)
[2016-12-19 22:44] LABS: BLOOD, URINE NEG (NEG); COMMENT (UR) CULT NOT INDICATED; CULTURE IF INDICATED CULT NOT INDICATED; GLUCOSE,URINE NEG (NEG); KETONE, URINE NEG (NEG); MUCUS URINE MANY /lpf (OCC); NITRITE,URINE NEG (NEG); PH, URINE 5.5 (5.0-8.5); SQUAMOUS EPITHELIAL CELL URINE 65 /hpf (0-5); URINE COLOR YELLOW (YELLW/STRAW)
[2016-12-19 22:57] LABS: BICARBONATE 28.4 MEQ/L (21.0-32.0); POTASSIUM 3.9 MEQ/L (3.5-5.1)
[2016-12-19 23:03] LABS: APTT (PATIENT) 28.7 SEC (24.3-30.1); PROTHROMBIN TIME - PATIENT 10.8 SEC (9.8-11.6)
[2016-12-19] MEDS ORDERED: BACT800T5 PO (23:06)
== END 2016-12-19 23:24 | disposition home or self-care (01) ==
LOC: NEPC 17:48
DX: N20.0 Calculus of kidney (principal); L03.114 Cellulitis of left upper limb; Z72.0 Tobacco use
CPT/HCPCS: 74176; 80048; 81001; 84703; 85025; 85610; 85730; 96361; 96374; 99285; J1885; J7030